=== PATIENT | male | born 1980 | race Caucasian/White ===

== ENCOUNTER 2020-02-18 14:24 | Outpatient (CLI) | payer BC ==
[~2020-02-18 14:24] MED LIST: METH4TAB PO
== END 2020-02-18 15:10 | disposition home or self-care (01) ==
LOC: SLEEP 14:24
PROVIDERS: ATTEND Nurse Practitioner Family
DX: R06.83 Snoring (principal); R51.9 Headache, unspecified; R53.83 Other fatigue